=== PATIENT | male | born 1965 | race Caucasian/White ===

== ENCOUNTER 2018-01-30 21:02 | Emergency (ER) | payer OTHER ==
--- NOTE | 2018-01-30 21:12 | ED ---
General Adult HPI - General Stated complaint: chest & arm pain Time Seen by Provider: 01/30/18 21:11 Source: RN notes reviewed, old records reviewed - History of Present Illness Initial comments: This is a 52-year-old male to the ER for evaluation of chest pain. Patient has history of heart disease history of coronary artery disease. Patient coming of chest pain left arm pain radiating to his left jaw, no shortness of breath no cough or congestion. Patient again does have history of severe heart disease. No travel history no sick contacts no fever, transient congestion, no diaphoresis currently at this time chest pain is resolved - Related Data Home Medications Medication Instructions Recorded Confirmed glipiZIDE [Glucotrol] 5 mg PO AC-BID 09/24/15 01/30/18 sitaGLIPtin PHOS/metFORMIN HCL 1 tab PO BID 09/24/15 01/30/18 [Janumet 50-1,000 mg Tablet] Metoprolol Tartrate [Lopressor] 50 mg PO BID 07/08/16 01/30/18 Insulin Degludec [Tresiba 30 unit SQ BID 01/30/18 01/30/18 Flextouch U-100] Insulin Lispro [humaLOG Kwikpen] 15 unit SQ TID 01/30/18 01/30/18 Previous Rx's Medication Instructions Recorded Aspirin 325 mg PO DAILY #30 tab 09/25/15 Allergies Allergy/AdvReac Type Severity Reaction Status Date / Time azithromycin [From Zithromax] AdvReac Severe Anaphylaxis Verified 01/30/18 22:27 cephalexin [From Keflex] AdvReac Severe Anaphylaxis Verified 01/30/18 22:27 Review of Systems ROS Statement: Those systems with pertinent positive or pertinent negative responses have been documented in the HPI. ROS Other: All systems not noted in ROS Statement are negative. Past Medical History Past Medical History: Coronary Artery Disease (CAD), Chest Pain / Angina, Diabetes Mellitus, GERD/Reflux, Hypertension, Myocardial Infarction (MO), Osteoarthritis (OA), Pneumonia, Renal Disease Additional Past Medical History / Comment(s): NIDDM type II, acute kidney injury -acute tubular necrosis, acute allergic nephritis with temporary dialysis in 2012, per past medical record-anemia but pt does not recall this, sinus problems , UTI, arthritis top/middle back, past scrotal cellulitis, rare numbnes to hands /left leg. Last Myocardial Infarction Date:: 09/24/15 History of Any Multi-Drug Resistant Organisms: None Reported Past Surgical History: Cholecystectomy, Heart Catheterization With Stent, Orthopedic Surgery, Tonsillectomy Additional Past Surgical History / Comment(s): 09/24/15 cardiac stent to LAD, 2013 kidney bx and R IJ dialysis cath insertion, I&D R scrotal abscess, colonoscopy with benign polypectomy, L knee arthroscopy, bilateral carpal tunnel releases, skin graft R arm d/t injury. Past Anesthesia/Blood Transfusion Reactions: No Reported Reaction Date of Last Stent Placement:: 09/24/15 Past Psychological History: No Psychological Hx Reported Additional Psychological History / Comment(s): Pt resides with his spouse and 2 adult sons. Pt is independent. He uses no assistive device. He drives. Smoking Status: Current every day smoker Past Alcohol Use History: None Reported Additional Past Alcohol Use History / Comment(s): Pt states he started smoking at age 13 and smokes between 1-2 ppd. Past Drug Use History: None Reported - Past Family History Father Family Medical History: Congestive Heart Failure (CHF), Myocardial Infarction ( MO) Additional Family Medical History / Comment(s): Father had a MO at age 57 yrs. He of CHF at the age of 66yrs. Mother Family Medical History: COPD Additional Family Medical History / Comment(s): Mother had emphysema and at the age of 70yrs. She had been a smoker. General Exam General appearance: alert, in no apparent distress Head exam: Present: atraumatic, normocephalic, normal inspection Eye exam: Present: normal appearance, PERRL, EOMI. Absent: scleral icterus, conjunctival injection, periorbital swelling ENT exam: Present: normal exam, mucous membranes moist Neck exam: Present: normal inspection. Absent: tenderness, meningismus, lymphadenopathy Respiratory exam: Present: normal lung sounds bilaterally. Absent: respiratory distress, wheezes, rales, rhonchi, stridor Cardiovascular Exam: Present: regular rate, normal rhythm, normal heart sounds. Absent: systolic murmur, diastolic murmur, rubs, gallop, clicks GI/Abdominal exam: Present: soft, normal bowel sounds. Absent: distended, tenderness, guarding, rebound, rigid Extremities exam: Present: normal inspection, full ROM, normal capillary refill. Absent: tenderness, pedal edema, joint swelling, calf tenderness Back exam: Present: normal inspection Neurological exam: Present: alert, oriented X3, CN II-XII intact Psychiatric exam: Present: normal affect, normal mood Skin exam: Present: warm, dry, intact, normal color. Absent: rash Course Vital Signs 01/30/18 01/30/18 01/30/18 21:18 22:17 22:53 Temperature 98.2 F Pulse Rate 84 79 Pulse Rate [ Fire Eater ] Respiratory 18 18 18 Rate Blood Pressure 147/86 151/72 O2 Sat by Pulse 97 97 Oximetry 01/30/18 01/30/18 01/31/18 22:54 23:15 00:04 Temperature 97.8 F Pulse Rate 78 77 Pulse Rate [ 77 Fire Eater ] Respiratory 16 18 Rate Blood Pressure 134/71 156/76 O2 Sat by Pulse 97 100 Oximetry 01/31/18 00:06 Temperature Pulse Rate 77 Pulse Rate [ Fire Eater ] Respiratory 18 Rate Blood Pressure 175/87 O2 Sat by Pulse 98 Oximetry - Reevaluation(s) Reevaluation #1: Patient's chest pain is resolved Medical record prior hospitalizations are reviewed EKG Findings - EKG Comments: EKG Findings:: EKG shows normal sinus rhythm rate of 79, SC 156, QRS 06, QTc 451 Medical Decision Making - Medical Decision Making 52 male the ED with chest pain. Patient states chest pain is atypical, knowledges normal heart disease. He states he would like to be discharged home at this time, EKG and labwork are normal - Lab Data Result diagrams: 01/30/18 22:15 01/30/18 22:15 Lab Results 01/30/18 01/30/18 01/30/18 Range/Units 22:15 22:15 22:15 WBC 9.8 (3.8-10.6) k/uL RBC 5.52 (4.30-5.90) m/uL Hgb 15.1 (13.0-17.5) gm/dL Hct 45.6 (39.0-53.0) % MCV 82.5 (80.0-100.0) fL MCH 27.3 (25.0-35.0) pg MCHC 33.0 (31.0-37.0) g/dL RDW 14.5 (11.5-15.5) % Plt Count 253 (150-450) k/uL Neutrophils % 64 % Lymphocytes % 24 % Monocytes % 7 % Eosinophils % 2 % Basophils % 1 % Neutrophils # 6.3 (1.3-7.7) k/uL Lymphocytes # 2.3 (1.0-4.8) k/uL Monocytes # 0.7 (0-1.0) k/uL Eosinophils # 0.2 (0-0.7) k/uL Basophils # 0.1 (0-0.2) k/uL PT (9.0-12.0) sec INR (<1.2) APTT (22.0-30.0) sec Sodium 138 (137-145) mmol/L Potassium 4.3 (3.5-5.1) mmol/L Chloride 106 (98-107) mmol/L Carbon Dioxide 21 L (22-30) mmol/L Anion Gap 11 mmol/L BUN 22 H (9-20) mg/dL Creatinine 0.90 (0.66-1.25) mg/dL Est GFR (CKD-EPI)AfAm >90 (>60 ml/min/1.73 sqM) Est GFR (CKD-EPI)NonAf >90 (>60 ml/min/1.73 sqM) Glucose 221 H (74-99) mg/dL Calcium 9.7 (8.4-10.2) mg/dL Magnesium 2.1 (1.6-2.3) mg/dL Total Bilirubin 0.3 (0.2-1.3) mg/dL AST 22 (17-59) U/L ALT 47 (21-72) U/L Alkaline Phosphatase 46 (38-126) U/L Total Creatine Kinase 79 (55-170) U/L CK-MB (CK-2) 0.6 (0.0-2.4) ng/mL CK-MB (CK-2) Rel Index 0.8 Troponin I <0.012 (0.000-0.034) ng/mL Total Protein 6.6 (6.3-8.2) g/dL Albumin 3.9 (3.5-5.0) g/dL Lipase 241 (23-300) U/L // Range/Units 22:15 WBC (3.8-10.6) k/uL RBC (4.30-5.90) m/uL Hgb (13.0-17.5) gm/dL Hct (39.0-53.0) % MCV (80.0-100.0) fL MCH (25.0-35.0) pg MCHC (31.0-37.0) g/dL RDW (11.5-15.5) % Plt Count (150-450) k/uL Neutrophils % % Lymphocytes % % Monocytes % % Eosinophils % % Basophils % % Neutrophils # (1.3-7.7) k/uL Lymphocytes # (1.0-4.8) k/uL Monocytes # (0-1.0) k/uL Eosinophils # (0-0.7) k/uL Basophils # (0-0.2) k/uL PT 9.6 (9.0-12.0) sec INR 1.0 (<1.2) APTT 23.5 (22.0-30.0) sec Sodium (137-145) mmol/L Potassium (3.5-5.1) mmol/L Chloride (98-107) mmol/L Carbon Dioxide (22-30) mmol/L Anion Gap mmol/L BUN (9-20) mg/dL Creatinine (0.66-1.25) mg/dL Est GFR (CKD-EPI)AfAm (>60 ml/min/1.73 sqM) Est GFR (CKD-EPI)NonAf (>60 ml/min/1.73 sqM) Glucose (74-99) mg/dL Calcium (8.4-10.2) mg/dL Magnesium (1.6-2.3) mg/dL Total Bilirubin (0.2-1.3) mg/dL AST (17-59) U/L ALT (21-72) U/L Alkaline Phosphatase (38-126) U/L Total Creatine Kinase (55-170) U/L CK-MB (CK-2) (0.0-2.4) ng/mL CK-MB (CK-2) Rel Index Troponin I (0.000-0.034) ng/mL Total Protein (6.3-8.2) g/dL Albumin (3.5-5.0) g/dL Lipase (23-300) U/L - Radiology Data Radiology results: report reviewed (Chest x-rays negative for acute disease), image reviewed Disposition Clinical Impression: Chest pain Disposition: HOME SELF-CARE Condition: Good Instructions: Chest Pain (ED) Is patient prescribed a controlled substance at d/c from ED?: No Referrals: Asif Rhodes DO [Primary Care Provider] - 1-2 days
--- NOTE | 2018-01-30 22:32 | XR ---
EXAMINATION TYPE: XR chest 2V DATE OF EXAM: 01/30/2018 COMPARISON: 09/24/2015 HISTORY: Chest pain TECHNIQUE: Frontal and lateral views of the chest are obtained. FINDINGS: There is some mild linear density at the right lung base. There is mild blunting of right costophrenic angle. There is no heart failure. Heart size is normal. Mediastinum appears normal. Ther e are chest leads. IMPRESSION: There is some pleural reaction and subsegmental atelectasis at the right lung base witho ut much change compared to old exam. No heart failure.
[2018-01-30 22:45] LABS: Basophils # (A) 0.1 k/uL (0-0.2); Basophils % (A) 1 %; Eosinophils # (A) 0.2 k/uL (0-0.7); Eosinophils % (A) 2 %; HCT 45.6 % (39.0-53.0); HGB 15.1 gm/dL (13.0-17.5); Lymphocytes # (A) 2.3 k/uL (1.0-4.8); Lymphocytes % (A) 24 %; MCH 27.3 pg (25.0-35.0); MCV 82.5 fL (80.0-100.0); Mean Platelet Volume 6.3; Monocytes # (A) 0.7 k/uL (0-1.0); Monocytes % (A) 7 %; Neutrophils # (A) 6.3 k/uL (1.3-7.7); Neutrophils % (A) 64 %; Platelet Count 253 k/uL (150-450); RBC 5.52 m/uL (4.30-5.90); RDW 14.5 % (11.5-15.5); WBC 9.8 k/uL (3.8-10.6)
[2018-01-30 22:53] LABS: Partial Thromboplastin Time 23.5 sec (22.0-30.0); Prothrombin Time 9.6 sec (9.0-12.0)
[2018-01-30 23:02] LABS: ALT 47 U/L (21-72); AST 22 U/L (17-59); Albumin 3.9 g/dL (3.5-5.0); Alkaline Phosphatase 46 U/L (38-126); Anion Gap 11 mmol/L; Blood Urea Nitrogen 22 mg/dL (9-20); Calcium 9.7 mg/dL (8.4-10.2); Carbon Dioxide 21 mmol/L (22-30); Chloride 106 mmol/L (98-107); Glucose 221 mg/dL (74-99); Lipase 241 U/L (23-300); Magnesium 2.1 mg/dL (1.6-2.3); Potassium 4.3 mmol/L (3.5-5.1); Sodium 138 mmol/L (137-145); Total Bilirubin 0.3 mg/dL (0.2-1.3); Total Protein 6.6 g/dL (6.3-8.2)
[2018-01-30 23:14] LABS: Creatine Kinase 79 U/L (55-170)
[2018-01-30 23:26] LABS: Creatine Kinase MB 0.6 ng/mL (0.0-2.4); Troponin I <0.012 ng/mL (0.000-0.034)
[2018-01-31 00:07] VITALS: BP 175/87; PULSE 77; RESP 18; TEMP 97.8
== END 2018-01-31 00:30 | disposition home or self-care (01) ==
LOC: EC 21:02
DX: R07.9 Chest pain, unspecified (principal); M79.602 Pain in left arm; I25.10 Atherosclerotic heart disease of native coronary artery without angina pectoris; E11.9 Type 2 diabetes mellitus without complications; I25.2 Old myocardial infarction; I11.9 Hypertensive heart disease without heart failure; F17.200 Nicotine dependence, unspecified, uncomplicated; Z95.5 Presence of coronary angioplasty implant and graft; Z98.890 Other specified postprocedural states; Z79.4 Long term (current) use of insulin; Z79.899 Other long term (current) drug therapy; Z88.1 Allergy status to other antibiotic agents
CPT/HCPCS: 36415; 71046; 80053; 82550; 82553; 83690; 83735; 84484; 85025; 85610; 85730; 99285

== ENCOUNTER → 2022-12-14 | Outpatient (CLI) | payer OTHER ==
--- NOTE | 2022-12-14 11:45 | XR ---
EXAMINATION TYPE: XR lumbar spine 2 or 3V DATE OF EXAM: 12/14/2022 CLINICAL HISTORY: Low back pain. Lumbago with Sciatica. TECHNIQUE: Frontal and lateral images of the lumbar spine are obtained. COMPARISON: MRI lumbar spine December 21, 2010 FINDINGS: There are 5 lumbar type vertebral bodies identified. The lumbar spine shows grade 1 retro listhesis L3 on L4. Vertebral body heights and disk space heights are within normal limits. Moderate multilevel anterior and lateral spurring is seen. [id number] overlying arterial vascular calcif ication distal abdominal aorta extends into iliac branch vessels. IMPRESSION: As above.
== END | disposition home or self-care (01) ==
LOC: RADXRMAIN 11:13
PROVIDERS: ATTEND Emergency Medicine
DX: M54.40 Lumbago with sciatica, unspecified side (principal)
CPT/HCPCS: 72100